=== PATIENT | male | born 1975 | race Caucasian/White ===

== ENCOUNTER 2023-06-12 16:17 | Emergency (ER) | payer MEDICAID ==
[~2023-06-12] VITALS: Ht 172 cm; Wt 63.9 kg
[2023-06-12 17:07] LABS: BASOPHILS # (AUTO) 0.1 10^3/uL (0.0-0.1); BASOPHILS % (AUTO) 1 % (0-10); EOSINOPHILS # (AUTO) 0.1 10^3/uL (0.0-0.3); EOSINOPHILS % (AUTO) 1 % (0-10); HEMATOCRIT 57 % (40-54); HEMOGLOBIN 19.6 g/dL (13.3-17.7); LYMPHOCYTES # (AUTO) 2.6 10^3/uL (1.0-4.0); LYMPHOCYTES % (AUTO) 25 % (12-44); MEAN CORPUSCULAR HEMOGLOBIN 37 pg (25-34); MEAN CORPUSCULAR HGB CONC 35 g/dL (32-36); MEAN CORPUSCULAR VOLUME 108 fL (80-99); MEAN PLATELET VOLUME 9.3 fL (9.0-12.2); MONOCYTES # (AUTO) 1.1 10^3/uL (0.0-1.0); MONOCYTES % (AUTO) 10 % (0-12); NEUTROPHILS # (AUTO) 6.5 10^3/uL (1.8-7.8); NEUTROPHILS % (AUTO) 63 % (42-75); PLATELET COUNT 288 10^3/uL (130-400); WHITE BLOOD COUNT 10.4 10^3/uL (4.3-11.0)
--- NOTE | 2023-06-12 17:08 | ED Psychosocial ---
General Chief Complaint: Substance Abuse Stated Complaint: DETOX Nursing Triage Note: PT AMBULATORY TO ER WITH FAMILY. REPORTS HX OF ALCOHOL ABUSE. PT STATES HAS APPT WITH [facility]C TOMORROW, HAS BEEN CUTTING DOWN ON HIS DRINKING FOR THE PAST SEVERAL DAYS PER REQUEST OF [facility]. STATES HAD 200ML OF WHISKEY AND 3 BEERS AROUND NOON TODAY. PT REQUESTING MEDS TO 'HELP WITH DETOX UNTIL TOMORROW'. Source: patient Exam Limitations: no limitations (REA HANCOCK APRN) History of Present Illness Date Seen by Provider: Jun 12, 2023 Time Seen by Provider: 16:34 Initial Comments 47-year-old male presents to the ER requesting medications for alcohol withdrawal. Patient states that he has an inpatient bed tomorrow morning at [facility] in [facility] for alcohol detox. He states that they told him to come here to get a prescription for medications for detox. Patient does not have a primary care provider. He reports that he has been drinking daily for the last 4 years. States that he drinks approximately 400 mL of liquor and 4-6 beers a day. States that [facility] told him to start cutting back, states that today he drank 200 mL of liquor and 2 beers. He states he has been reducing the amount he has been drinking over the last couple days. He reports he previously withdrew from alcohol at the age of 30. States at that time he just had mild shakes, denies history of seizure with withdrawal. He reports intermittent right lower quadrant and right upper quadrant abdominal pain, denies pain at this time. Denies nausea and vomiting. States he does have diarrhea occasionally. (REA HANCOCK APRN) Allergies and Home Medications Patient Home Medication List Home Medication List Reviewed: Yes (REA HANCOCK APRN) Diphenhydramine HCl (Benadryl) 25 Mg Capsule, 25 MG PO HS Prescribed by: Rea Blake on 06/12/231805 Lorazepam (Ativan) 1 Mg Tablet, 1 MG SL Q4H Prescribed by: Rea Blake on 06/12/231803 Review of Systems Constitutional: see HPI (REA HANCOCK APRN) Past Zmgybum-Qgvhbi-Wuuzla Hx Patient Social History Tobacco Use?: Yes Tobacco type used: Cigarettes Smoking Status: Current Everyday Smoker Substance use?: Yes Substance type: Marijuana Alcohol Use?: Yes Alcohol type: Beer, Hard Liquor Alcohol Frequency: Daily Pt feels they are or have been: No (REA HANCOCK APRN) Immunizations Up To Date First/Initial COVID19 Vaccinat: DENIES (REA HANCOCK APRN) Physical Exam Vital Signs - First Documented 06/12/23 16:30 Temp 36.7 Pulse 105 Resp 18 B/P (MAP) 143/105 (118) Pulse Ox 98 O2 Delivery Room Air (MAURICE BAIG MD) Capillary Refill : (REA HANCOCK APRN) Height, Weight, BMI Height: '" Weight: lbs. oz. kg; 21.00 BMI Method: General Appearance: WD/WN, no apparent distress Neck: supple, normal inspection Respiratory: lungs clear, normal breath sounds, no respiratory distress, no accessory muscle use Cardiovascular: tachycardia Extremities: normal range of motion, normal inspection Neurologic/Psychiatric: alert, normal mood/affect Appearance/Memory: appropriate appearance, appropriate insight, neat Behavior/Eye Contact: cooperative, good eye contact, normal speech Thoughts/Hallucinations: normal thought pattern, no apparent hallucination Skin: normal color, warm/dry (REA HANCOCK APRN) Progress/Results/Core Measures Results/Orders Lab Results Laboratory Tests Test 06/12/23 16:54 Range/Units White Blood Count 10.4 4.3-11.0 10^3/uL Red Blood Count 5.24 4.30-5.52 10^6/uL Hemoglobin 19.6 H 13.3-17.7 g/dL Hematocrit 57 H 40-54 % Mean Corpuscular Volume 108 H 80-99 fL Mean Corpuscular Hemoglobin 37 H 25-34 pg Mean Corpuscular Hemoglobin Concent 35 32-36 g/dL Red Cell Distribution Width 12.0 10.0-14.5 % Platelet Count 288 130-400 10^3/uL Mean Platelet Volume 9.3 9.0-12.2 fL Immature Granulocyte % (Auto) 1 % Neutrophils (%) (Auto) 63 42-75 % Lymphocytes (%) (Auto) 25 12-44 % Monocytes (%) (Auto) 10 0-12 % Eosinophils (%) (Auto) 1 0-10 % Basophils (%) (Auto) 1 0-10 % Neutrophils # (Auto) 6.5 1.8-7.8 10^3/uL Lymphocytes # (Auto) 2.6 1.0-4.0 10^3/uL Monocytes # (Auto) 1.1 H 0.0-1.0 10^3/uL Eosinophils # (Auto) 0.1 0.0-0.3 10^3/uL Basophils # (Auto) 0.1 0.0-0.1 10^3/uL Immature Granulocyte # (Auto) 0.1 0.0-0.1 10^3/uL Sodium Level 139 135-145 MMOL/L Potassium Level 4.1 3.6-5.0 MMOL/L Chloride Level 102 98-107 MMOL/L Carbon Dioxide Level 24 21-32 MMOL/L Anion Gap 13 5-14 MMOL/L Blood Urea Nitrogen 5 L 7-18 MG/DL Creatinine 0.70 0.60-1.30 MG/DL Estimat Glomerular Filtration Rate 114 BUN/Creatinine Ratio 7 Glucose Level 84 70-105 MG/DL Calcium Level 9.7 8.5-10.1 MG/DL Corrected Calcium 9.5 8.5-10.1 MG/DL Total Bilirubin 0.6 0.1-1.0 MG/DL Aspartate Amino Transf (AST/SGOT) 79 H 5-34 U/L Alanine Aminotransferase (ALT/SGPT) 53 0-55 U/L Alkaline Phosphatase 160 H 40-136 U/L Total Protein 7.8 6.4-8.2 GM/DL Albumin 4.2 3.2-4.5 GM/DL Urine Opiates Screen NEGATIVE NEGATIVE Urine Oxycodone Screen NEGATIVE NEGATIVE Urine Methadone Screen NEGATIVE NEGATIVE Urine Barbiturates Screen NEGATIVE NEGATIVE Ur Tricyclic Antidepressants Screen NEGATIVE NEGATIVE Urine Phencyclidine Screen NEGATIVE NEGATIVE Urine Amphetamines Screen NEGATIVE NEGATIVE Urine Methamphetamines Screen NEGATIVE NEGATIVE Urine Benzodiazepines Screen NEGATIVE NEGATIVE Urine Cocaine Screen NEGATIVE NEGATIVE Urine Cannabinoids Screen POSITIVE H NEGATIVE Serum Alcohol 182 H <10 MG/DL (MAURICE BAIG MD) Blood Pressure Mean: 118 Progress Progress Note : Progress Note Patient seen and evaluated, resting comfortably in bed, no acute distress. Based on exam and symptoms, workup initiated included CBC, CMP, alcohol level, drug screen. I called and spoke with [facility] in [facility]. Due to today being a Tuesday, medication coordinator was not available, so the staff was unable to confirm that patient has a bed. They report that they do not have a provider that can write prescriptions for patients during detox. The patient is usually come with a prescription or with the medications. They usually require a 5-day taper. 1757 Labs reviewed. CBC shows elevated hemoglobin 19.6, elevated hematocrit 57, elevated MCV 108, elevated MCH 37. CMP grossly normal. AST slightly elevated 79 alkaline phosphatase slightly elevated 160. Urine drug screen positive for cannabinoids, serum alcohol 182. Results discussed with patient. Elevated hematocrit may be related to dehydration. Patient instructed to follow-up with a primary care provider regarding this. I discussed prescriptions with patient and his . Patient's is comfortable picking up the prescription and taking the prescription to [facility] for him. Patient instructed not to take any of the medication while he drinking alcohol. Patient states he does not want any take-home medications tonight because he thinks he may drink alcohol tonight. Patient requesting something for sleep while he is at [facility]. States he normally takes Tylenol PM. Will also give a short prescription for Benadryl. Patient is stable for discharge. Discharge instructions and return precautions provided. (REA HANCOCK APRN) Departure Impression Primary Impression: Alcohol abuse Disposition: HOME, SELF-CARE Condition: Stable Departure-Patient Inst. Decision time for Depature: 17:57 (REA HANCOCK APRN) Referrals: NO,LOCAL PHYSICIAN (PCP) Primary Care Physician Patient Instructions: ALCOHOL AND SUBSTANCE ABUSE Add. 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 I would like her to give the prescriptions to the staff at [facility]. Go to [facility] tomorrow for your inpatient treatment. Follow-up with a primary care provider regarding your elevated red blood cells. This could simply be from dehydration, but should be rechecked. One of your liver function test was slightly elevated, this is likely from your alcohol use. This should be monitored by a primary care provider as well. Return for any new, concerning, or worsening symptoms. All discharge instructions reviewed with patient and/or family. Voiced understanding. Scripts Diphenhydramine HCl (Benadryl) 25 Mg Capsule 25 MG PO HS for 5 Days, #5 CAP 0 Refills Prov: REA HANCOCK APRN 06/12/23 Lorazepam (Ativan) 1 Mg Tablet 1 MG SL Q4H, #15 TAB 0 Refills 1 tablet every 4 hours x6 doses 1 tablet every 6 hours x4 doses 1 tablet every 8 hours x3 doses 1 tablet every 12 hours x 2 doses Prov: REA HANCOCK APRN 06/12/23 ATTENDING PHYSICIAN NOTE: I was physically present as attending physician in the emergency department during the care of this patient. I discussed clinical presentation and plan of care with Rea Hancock NP. I did not personally interview or examine this patient, and I was not otherwise directly involved in the decision making or delivery of care for this patient. (MAURICE BAIG MD) REA HANCOCK APRN Jun 12, 2023 17:08 MAURICE BAIG MD Jun 13, 2023 09:45
[2023-06-12 17:15] LABS: ALBUMIN 4.2 GM/DL (3.2-4.5); POTASSIUM 4.1 MMOL/L (3.6-5.0)
[2023-06-12 17:16] LABS: CALCIUM 9.7 MG/DL (8.5-10.1)
[2023-06-12 17:18] LABS: TOTAL PROTEIN 7.8 GM/DL (6.4-8.2)
[2023-06-12 17:19] LABS: BILIRUBIN,TOTAL 0.6 MG/DL (0.1-1.0)
[2023-06-12 17:21] LABS: AMPHETAMINE SCREEN, URINE NEGATIVE (NEGATIVE); BARBITURATE SCREEN URINE NEGATIVE (NEGATIVE); CANNABINOID SCREEN, URINE POSITIVE (NEGATIVE); COCAINE SCREEN URINE NEGATIVE (NEGATIVE); CREATININE SERUM 0.7 MG/DL (0.60-1.30); METHADONE STAT NEGATIVE (NEGATIVE); OPIATE SCREEN URINE NEGATIVE (NEGATIVE); OXYCODONE STAT NEGATIVE (NEGATIVE); TRICYCLIC ANTIDEPRESSANTS SCRE NEGATIVE (NEGATIVE)
[2023-06-12] MEDS ORDERED: LORA-405 SL (18:04)
[2023-06-12] MEDS ORDERED: DIPH25CA79 PO (18:06)
[2023-06-12 18:07] VITALS: BP 127/84
== END 2023-06-12 18:07 | disposition home or self-care (01) ==
LOC: ER 16:21
DX: F10.10 Alcohol abuse, uncomplicated (principal); D58.2 Other hemoglobinopathies; R79.89 Other specified abnormal findings of blood chemistry; F17.210 Nicotine dependence, cigarettes, uncomplicated
CPT/HCPCS: 36415; 80053; 80306; 80320; 85025; 99282